=== PATIENT | female | born 1980 | race African-American/Black ===

== ENCOUNTER 2017-01-31 01:44 | Emergency (ER) | payer MEDICARE, OTHER ==
[~2017-01-31] VITALS: Ht 167.6 cm; Wt 118.0 kg
[2017-01-31 01:45] VITALS: BP 130/71; PULSE 84; RESP 16; TEMP 97.4; O2SAT 96
[2017-01-31] MEDS ORDERED: ALBUTEROL SULFATE 90 MCG/ACT HFA 8 GM INHALER INH ONE (02:30)
[2017-01-31] MEDS ORDERED: ALBUAER3 INH (03:20)
--- NOTE | 2017-01-31 03:21 | PD ---
HPI Chief Complaint: Respiratory Symptoms Time Seen by Provider: 02:14 Travel History International Travel<30 days: No Contact w/Intl Traveler<30days: No Traveled to known affect area: No History of Present Illness HPI 36-year-old female arrives complaint shortness of breath. She has history of asthma. She uses an albuterol inhaler however ran out. She did not have one here having just recently relocated. She has no primary care provider. She requests an albuterol inhaler. She's no fever. No chest pain. She had difficulty sleeping last night because of shortness of breath and wheezing. [facility] Past Medical History Respiratory: Yes (ASTHMA) ?: Not LMP: 01/26/17 Past Surgical History Surgical History: No Previous Surgery Social History Alcohol Use: No Tobacco Use: Yes (1 PPD) Substance Use: No Allergies-Medications (Allergen,Severity, Reaction): Coded Allergies: No Known Allergies (Unverified , 01/31/17) Review of Systems Except as stated in HPI: all other systems reviewed are Neg Physical Exam Narrative GENERAL: 36-year-old female well-nourished well-developed patient asleep in room SKIN: Focused skin assessment warm/dry. HEAD: Atraumatic. Normocephalic. EYES: Pupils equal and round. No scleral icterus. No injection or drainage. ENT: No nasal bleeding or discharge. Mucous membranes pink and moist. NECK: Trachea midline. No JVD. CARDIOVASCULAR: Regular rate and rhythm. No murmur appreciated. RESPIRATORY: Minimal wheezing bilaterally. No tachypnea. GASTROINTESTINAL: Abdomen soft, non-tender, nondistended. Hepatic and splenic margins not palpable. MUSCULOSKELETAL: No obvious deformities. No clubbing. No cyanosis. No edema. NEUROLOGICAL: Awake and alert. No obvious cranial nerve deficits. Motor grossly within normal limits. Normal speech. PSYCHIATRIC: Appropriate mood and affect; insight and judgment normal. Data Data Last Documented VS Vital Signs Date Time Temp Pulse Resp B/P Pulse Ox O2 Delivery O2 Flow Rate FiO2 01/31/17 01:45 97.4 84 16 130/71 96 Vital signs reviewed Orders Albuterol Hfa Inh (Proair Hfa Inh) (01/31/17 02:30) [facility] Medical Decision Making Medical Screen Exam Complete: Yes Emergency Medical Condition: Yes Medical Record Reviewed: Yes Differential Diagnosis Medication refill, asthma, pneumonia Narrative Course Patient received albuterol inhaler. She'll go home with a prescription for one. Diagnosis Primary Impression: Asthma Qualified Code: J45.909 - Uncomplicated asthma, unspecified asthma severity Additional Impression: Medication refill Referrals: [facility] call for appointment Additional Instructions: You have a choice when it comes to health care, and we are glad that you chose [facility]. Hopefully, we have met your expectations on today's visit. You are welcome to return to [facility] at any time, as we are committed to meeting the health care needs of our community. Med/Other Pt SpecificInfo: Prescription(s) given Scripts Albuterol 8.5 GM Inh (Proair Hfa 8.5 GM Inh)90 Mcg/Act Aer2 Puff INH Q6H PRN ( SHORTNESS OF BREATH) #1 INHALER Ref 0 108 mcg/actuation Prov:Bill Gonzalez MD 01/31/17 Disposition: 01 DISCHARGE HOME Condition: Stable Bill Gonzalez MD Jan 31, 2017 03:20
== END 2017-01-31 03:58 | disposition home or self-care (01) ==
LOC: NEPE 01:44
DX: J45.909 Unspecified asthma, uncomplicated (principal); Z76.0 Encounter for issue of repeat prescription
CPT/HCPCS: 99283

== ENCOUNTER 2017-10-06 21:47 | Emergency (ER) | payer MEDICARE, OTHER ==
[~2017-10-06] VITALS: Ht 165.1 cm; Wt 90.0 kg
[~2017-10-06 21:47] MED LIST: ALBUAER3 INH
[2017-10-06 21:50] VITALS: BP 134/85; PULSE 79; RESP 18; TEMP 99; O2SAT 99
[2017-10-06 21:58] VITALS: BP 142/66; PULSE 77; RESP 20; TEMP 98; O2SAT 99
[2017-10-06] MEDS ORDERED: DEPA500T3 PO (21:58)
[2017-10-06] MEDS ORDERED: SERO100T PO (21:58)
[2017-10-06] MEDS ORDERED: TRAZ100T10 PO (21:58)
[2017-10-06] MEDS ORDERED: DIAZEPAM 10 MG TAB PO ONE (22:30)
[2017-10-06] MEDS ORDERED: KETOROLAC TROMETHAMINE 30 MG/ML (IVP) VIAL IV PUSH ONE (22:30)
--- NOTE | 2017-10-06 23:43 | PD ---
HPI . Chest pain Chief Complaint: Chest Pain Time Seen by Provider: 22:05 Travel History International Travel<30 days: No Contact w/Intl Traveler<30days: No Traveled to known affect area: No History of Present Illness HPI 37-year-old female presents complaining of having right lateral upper chest wall pain and right shoulder pain/trapezius region pain worse with movement and recruitment of similar muscle groups. Patient denies any strenuous activity or any heavy lifting of late. Patient also denies any change in exercise tolerance , shortness of breath or dyspnea on exertion. Denies diaphoresis, fever chills sweats, shortness of breath. PFSH Past Medical History Narrative Medical Past medical history reviewed Bipolar Disorder: Yes Depression: Yes Respiratory: Yes (ASTHMA) Immunizations Current: Yes Tetanus Vaccination: Unknown Influenza Vaccination: No ?: Not LMP: 2 days ago Past Surgical History Eye Surgery: Yes (right) Social History Alcohol Use: No Tobacco Use: Yes (1 PPD) Substance Use: No Allergies-Medications (Allergen,Severity, Reaction): Coded Allergies: No Known Allergies (Unverified Adverse Reaction, Unknown, 10/06/17) Reported Meds & Prescriptions Reported Meds & Active Scripts Active Proair Hfa 8.5 GM Inh (Albuterol Sulfate) 90 Mcg/Act Aer 2 Puff INH Q6H PRN 108 mcg/actuation Reported Depakote ER (Divalproex Sodium) 500 Mg Sho 500 Mg PO DAILY Narrative Medication Allergies and medications reviewed Review of Systems Except as stated in HPI: all other systems reviewed are Neg General / Constitutional: No: Fever Eyes: No: Visual changes HENT: No: Headaches Cardiovascular: Positive: Chest Pain or Discomfort Respiratory: No: Shortness of Breath Gastrointestinal: No: Abdominal Pain Genitourinary: No: Dysuria Musculoskeletal: No: Pain Skin: No Rash Neurologic: No: Weakness Psychiatric: No: Depression Endocrine: No: Polydipsia Hematologic/Lymphatic: No: Easy Bruising Physical Exam Narrative GENERAL: Awake alert oriented 3 no acute distress vital signs afebrile normal and stable SKIN: Warm and dry. Color is normal no diaphoresis cyanosis or pallor. Patient does note however vitiligo on her face and hands which she states is relatively new. HEAD: Atraumatic. Normocephalic. EYES: Pupils equal and round. No scleral icterus. No injection or drainage. ENT: No nasal bleeding or discharge. Mucous membranes pink and moist. NECK: Trachea midline. No JVD. Supple nontender full range of motion CARDIOVASCULAR: Regular rate and rhythm. S1-S2 no murmurs rubs gallops RESPIRATORY: No accessory muscle use. Clear to auscultation. Breath sounds equal bilaterally. GASTROINTESTINAL: Abdomen soft, non-tender, nondistended. Hepatic and splenic margins not palpable. MUSCULOSKELETAL: Extremities without clubbing, cyanosis, or edema. No obvious deformities. NEUROLOGICAL: Awake and alert. No obvious cranial nerve deficits. Motor grossly within normal limits. Five out of 5 muscle strength in the arms and legs. Normal speech. PSYCHIATRIC: Appropriate mood and affect; insight and judgment normal. Data Data Last Documented VS Vital Signs Date Time Temp Pulse Resp B/P (MAP) Pulse Ox O2 Delivery O2 Flow Rate FiO2 10/06/17 21:58 98.0 77 20 142/66 (91) 99 Room Air Orders Orders Ketorolac Inj (Toradol Inj) (10/06/17 22:30) Diazepam (Valium) (10/06/17 22:30) MDM Medical Decision Making Medical Screen Exam Complete: Yes Emergency Medical Condition: Yes Medical Record Reviewed: Yes Differential Diagnosis Chest pain, chest wall pain, muscle strain, vitiligo Narrative Course EKG normal sinus rhythm at 82 bpm, nonischemic, intervals normal. Patient had workup ordered for chest pain, was given Toradol and Valium orally and p.o. respectively. Before patient could undergo full evaluation, patient elected to leave AGAINST MEDICAL ADVICE/. Multiple attempts made by nursing staff and myself to palliate the patient and have her stay for treatment any further evaluation for which she declined. Patient would not offer a reason why she was leaving. Patient would not sign discharge paperwork or AGAINST MEDICAL ADVICE paperwork. Patient would not wait for discharge instructions Diagnosis Primary Impression: Chest pain Qualified Codes: R07.9 - Chest pain, unspecified Disposition: 07 AGAINST MEDICAL ADVICE Condition: J Carlos Hays MD Oct 06, 2017 23:43
--- NOTE | 2017-10-07 22:38 | EKG ---
Date Performed: 10/06/2017 Time Performed: 22:02:01 PTAGE: 37 years EKG: Sinus rhythm WITH FIRST DEGREE AV BLOCK ABNORMAL ECG NO PREVIOUS TRACING DOCTOR: Bala Crespo Interpretating Date/Time 10/07/2017 22:37:08
== END 2017-10-07 | disposition left against medical advice (07) ==
LOC: NEPE 21:47
DX: R07.9 Chest pain, unspecified (principal); I44.0 Atrioventricular block, first degree; R94.31 Abnormal electrocardiogram [ECG] [EKG]; F31.9 Bipolar disorder, unspecified; J45.909 Unspecified asthma, uncomplicated; F17.200 Nicotine dependence, unspecified, uncomplicated; Z79.899 Other long term (current) drug therapy
CPT/HCPCS: 93005; 96374; 99284; J1885

== ENCOUNTER 2017-10-07 20:06 | Emergency (ER) | payer MEDICARE, OTHER ==
[~2017-10-07] VITALS: Ht 165.1 cm; Wt 90.0 kg
[~2017-10-07 20:06] MED LIST changes: +DEPA500T3 PO; +SERO100T PO; +TRAZ100T10 PO
[2017-10-07 21:28] VITALS: BP 133/60; PULSE 67; RESP 18; TEMP 98.3; O2SAT 100
--- NOTE | 2017-10-07 23:40 | PD ---
HPI Chief Complaint: Skin Problem Time Seen by Provider: 22:52 Travel History International Travel<30 days: No Contact w/Intl Traveler<30days: No Traveled to known affect area: No History of Present Illness HPI Patient is 37 years old and arrives with complaints of whitening discoloration about the face and the hands. Location skin. Timing constant. Severity mild to moderate. No modifying factor. Onset gradual PFSH Past Medical History Bipolar Disorder: Yes Depression: Yes Respiratory: Yes (ASTHMA) Immunizations Current: Yes ?: Not LMP: 09/29/17 Past Surgical History Eye Surgery: Yes (right) Social History Alcohol Use: No Tobacco Use: Yes (1 PPD) Substance Use: No Allergies-Medications (Allergen,Severity, Reaction): Coded Allergies: No Known Allergies (Unverified Adverse Reaction, Unknown, 10/07/17) Reported Meds & Prescriptions Reported Meds & Active Scripts Active Proair Hfa 8.5 GM Inh (Albuterol Sulfate) 90 Mcg/Act Aer 2 Puff INH Q6H PRN 108 mcg/actuation Reported Depakote ER (Divalproex Sodium) 500 Mg Sho 500 Mg PO DAILY Review of Systems Except as stated in HPI: all other systems reviewed are Neg General / Constitutional: No: Fever Physical Exam Narrative GENERAL: Well-nourished well-developed 37-year-old female Vital Signs Date Time Temp Pulse Resp B/P (MAP) Pulse Ox O2 Delivery O2 Flow Rate FiO2 10/07/17 21:28 98.3 67 18 133/60 (84) 100 SKIN: Warm and dry. Vitiligo changes about the face and hands. HEAD: Atraumatic. Normocephalic. EYES: Pupils equal and round. No scleral icterus. No injection or drainage. ENT: No nasal bleeding or discharge. Mucous membranes pink and moist. NECK: Trachea midline. No JVD. CARDIOVASCULAR: Regular rate and rhythm. RESPIRATORY: No accessory muscle use. Clear to auscultation. Breath sounds equal bilaterally. GASTROINTESTINAL: Abdomen soft, non-tender, nondistended. Hepatic and splenic margins not palpable. MUSCULOSKELETAL: Extremities without clubbing, cyanosis, or edema. No obvious deformities. NEUROLOGICAL: Awake and alert. No obvious cranial nerve deficits. Motor grossly within normal limits. Five out of 5 muscle strength in the arms and legs. Normal speech. PSYCHIATRIC: Appropriate mood and affect; insight and judgment normal. Data Data Last Documented VS Vital Signs Date Time Temp Pulse Resp B/P (MAP) Pulse Ox O2 Delivery O2 Flow Rate FiO2 10/07/17 21:28 98.3 67 18 133/60 (84) 100 Orders Orders Ed Discharge Order (10/07/17 23:59) MDM Medical Decision Making Medical Screen Exam Complete: Yes Emergency Medical Condition: Yes Medical Record Reviewed: Yes Differential Diagnosis Vitiligo, abscess, cellulitis Narrative Course Patient's presentation is concerning for vitiligo. The patient elected to leave AGAINST MEDICAL ADVICE after the initial history and physical was done. The patient left prior to signing paperwork and prior to my ability to reassess her and discuss the benefits of treatment and follow-up. Diagnosis Primary Impression: Patient left without being seen Med/Other Pt SpecificInfo: Prescription(s) given Disposition: 07 AGAINST MEDICAL ADVICE Condition: Stable Bill Gonzalez MD Oct 07, 2017 23:40
== END 2017-10-08 00:09 | disposition left against medical advice (07) ==
LOC: NEPD 20:06
DX: L98.8 Other specified disorders of the skin and subcutaneous tissue (principal); F17.200 Nicotine dependence, unspecified, uncomplicated; J45.909 Unspecified asthma, uncomplicated
CPT/HCPCS: 99281